=== PATIENT | male | born 1955 | race African-American/Black ===

== ENCOUNTER 2021-08-16 06:49 | Observation (INO) ==
[2021-08-16 08:43] LABS: Basophils % 0.7 % (0.0-0.8); Eosinophils # 0.1 10*3/uL (0.0-0.87); Hematocrit 45.2 VOL% (42.0-52.0); Hemoglobin 14.9 GM/DL (14.0-18.0); Immature Granulocytes % 0.2 %; Immature Granulocytes Absolute 0.01 #; Lymphocytes # 1.1 10*3/uL (1.4-4.0); Lymphocytes % 26.2 % (21.2-54.2); Mean Corpuscular Volume 97.6 FL (87-102); Mean Platelet Volume 9.3 FL (9.6-12.0); Monocytes % 8.8 % (1.7-12.7); Neutrophils % 62.1 % (38.7-73.9); Platelet Count 128 T/CUMM (130-400); Red Blood Count 4.63 MC/CUMM (3.8-5.5); White Blood Count 4.1 T/CUMM (4-12)
[2021-08-16 09:08] LABS: Bilirubin,Urine Negative (Negative); Blood, Urine Negative (Negative); Glucose,Urine (UA) Negative (Negative); Ketones,Urine Negative (Negative); Mucus,Urine Occasional /LPF (Occasional); Nitrite,Urine Negative (Negative); Protein,Urine 100 MG/DL; RBC,Urine 4 /HPF (0-4); Urine Appearance CLEAR (Clear); Urine Color Yellow (Yellow); Urine Specific Gravity 1.013 (1.001-1.035); Urine Urobilinogen < 2.0 EU/DL (0.2-1.0)
[2021-08-16 09:09] LABS: PT Patient Result 10.8 SECS (10.5-12.0); Partial Thromboplastin Time 27.5 SECS (23.8-32.1)
[2021-08-16 09:37] LABS: Alanine Aminotransferase 16 U/L (16-61); Albumin 3.3 G/DL (3.4-5.0); Alkaline Phosphatase 73 U/L (45-117); Aspartate Amino Transferase 13 U/L (0-37); Bilirubin,Total < 0.39 MG/DL (0.20-1.00); Blood Urea Nitrogen 20 MG/DL (7-18); Calcium 8.9 MG/DL (8.5-10.1); Carbon Dioxide 28 MMOL/L (21-32); Estimated Glom Filtration Rate 53 ML/MIN; Glucose 88 MG/DL (74-106); Osmolality,Calculated 276.7 MOS/KG (273-304); Potassium 5.4 MMOL/L (3.5-5.1); Sodium 138 MMOL/L (136-145); Total Protein 6.6 G/DL (6.4-8.2)
[2021-08-16] MEDS ORDERED: SODIUM CHLORIDE 0.9% 1,000 ML IV STA (09:46)
[2021-08-16] MEDS ORDERED: LEVOFLOXACIN INJ 750 MG in PREMIX 1 EACH IV STA (10:23)
[2021-08-16] MEDS ORDERED: hydrALAZINE 20 MG/1 ML VIAL IV PRN (11:18)
[2021-08-16] MEDS ORDERED: GLUCAGON 1 MG VIAL IM PRN (11:18)
[2021-08-16] MEDS ORDERED: MORPHINE 2 MG/1 ML SYRINGE IV PRN (11:18)
[2021-08-16] MEDS ORDERED: DEXTROSE 50% 25 GM/50 ML VIAL IV PRN (11:18)
[2021-08-16] MEDS ORDERED: ONDANSETRON 4 MG/2 ML VIAL IV PRN (11:18)
[2021-08-16] MEDS ORDERED: ALBUTEROL/IPRATROPIUM 3 ML NEB RESP TX PRN (11:18)
[2021-08-16] MEDS ORDERED: ACETAMINOPHEN 325 MG TABLET PO PRN (11:18)
[2021-08-16] MEDS ORDERED: LORazepam 2 MG/1 ML VIAL IV PRN (11:40)
[2021-08-16 12:04] LABS: Folate 16.3 NG/ML (5.38-24.0)
[2021-08-16] MEDS: ALBUTEROL 2.5 MG/3 ML NEB RESP TX SCH ×2 (12:15→19:10)
[2021-08-16] MEDS: LEVOFLOXACIN INJ 750 MG/150 ML PREMIX IV SCH (13:25)
[2021-08-16] MEDS: SODIUM CHLORIDE 0.9% 1,000 ML IV SCH ×2 (13:27→20:50)
[2021-08-16] MEDS: methylPREDNISolone SOD SUC 40 MG/1 ML VIAL IV SCH ×2 (13:28→23:05)
[2021-08-16] MEDS: guaiFENesin/DM ER 600-30 MG TABLET PO SCH (20:49)
[2021-08-17] MEDS: ALBUTEROL 2.5 MG/3 ML NEB RESP TX SCH ×4 (01:04→20:30)
[2021-08-17 06:31] LABS: Basophils % 0.2 % (0.0-0.8); Hemoglobin 15.3 GM/DL (14.0-18.0); Immature Granulocytes % 0.2 %; Immature Granulocytes Absolute 0.01 #; Lymphocytes # 0.4 10*3/uL (1.4-4.0); Lymphocytes % 6.7 % (21.2-54.2); Mean Corpuscular HGB Conc 33.3 GM/DL (32-36); Mean Corpuscular Volume 98.1 FL (87-102); Mean Platelet Volume 9.6 FL (9.6-12.0); Monocytes % 0.5 % (1.7-12.7); Neutrophils % 92.4 % (38.7-73.9); Platelet Count 133 T/CUMM (130-400); Red Blood Count 4.69 MC/CUMM (3.8-5.5); Red Cell Distribution Width 14.6 % (9.3-17.3); White Blood Count 6.2 T/CUMM (4-12)
[2021-08-17 07:02] LABS: Albumin 2.8 G/DL (3.4-5.0); Bilirubin,Total 0.6 MG/DL (0.20-1.00); Calcium 8.2 MG/DL (8.5-10.1); Osmolality,Calculated 276.8 MOS/KG (273-304); Potassium 5.2 MMOL/L (3.5-5.1); Risk Ratio 4.79; Thyroid Stimulating Hormone 4.98 uIU/ml (0.358-3.74); Total Protein 6.2 G/DL (6.4-8.2); VLDL Cholesterol 17.8 MG/DL
[2021-08-17 07:09] LABS: Lymphocytes 3 % (20-55); Segmented Neutrophils 97 % (50-85); Total Cells Counted 100
[2021-08-17 07:12] LABS: Ovalocytes Few; Platelet Estimate Adequate; Polychromasia Slight
[2021-08-17] MEDS: THIAMINE 100 MG TABLET PO SCH (08:50)
[2021-08-17] MEDS: PANTOPRAZOLE 40 MG TABLET PO SCH (08:50)
[2021-08-17] MEDS: FOLIC ACID 1 MG TABLET PO SCH (08:50)
[2021-08-17] MEDS: guaiFENesin/DM ER 600-30 MG TABLET PO SCH ×2 (08:50→22:39)
[2021-08-17] MEDS: LEVOFLOXACIN INJ 750 MG/150 ML PREMIX IV SCH (11:49)
[2021-08-17] MEDS: BENZONATATE 100 MG CAPSULE PO SCH ×3 (11:49→22:49)
[2021-08-17] MEDS: cefTRIAXone 1,000 MG in SODIUM CHLORIDE 0.9% 100 ML IV SCH (17:20)
[2021-08-17] MEDS: SODIUM CHLORIDE 0.9% 1,000 ML IV SCH (22:38)
[2021-08-17] MEDS: methylPREDNISolone SOD SUC 40 MG/1 ML VIAL IV SCH (22:39)
[2021-08-18] MEDS: ALBUTEROL 2.5 MG/3 ML NEB RESP TX SCH ×4 (00:42→20:15)
[2021-08-18 06:07] LABS: Basophils % 0.2 % (0.0-0.8); Hematocrit 43.2 VOL% (42.0-52.0); Hemoglobin 14.4 GM/DL (14.0-18.0); Immature Granulocytes % 0.3 %; Immature Granulocytes Absolute 0.02 #; Lymphocytes # 0.6 10*3/uL (1.4-4.0); Lymphocytes % 8.7 % (21.2-54.2); Mean Corpuscular HGB Conc 33.3 GM/DL (32-36); Mean Corpuscular Volume 98.2 FL (87-102); Mean Platelet Volume 9.4 FL (9.6-12.0); Monocytes % 0.8 % (1.7-12.7); Platelet Count 137 T/CUMM (130-400); Red Cell Distribution Width 14.6 % (9.3-17.3); White Blood Count 6.6 T/CUMM (4-12)
[2021-08-18 06:11] LABS: Basophils % 0.2 % (0.0-0.8); Hemoglobin 14.6 GM/DL (14.0-18.0); Lymphocytes # 0.6 10*3/uL (1.4-4.0); Mean Corpuscular Volume 97.7 FL (87-102); Mean Platelet Volume 9.3 FL (9.6-12.0); Monocytes % 0.8 % (1.7-12.7); Neutrophils % 89.5 % (38.7-73.9); Platelet Count 142 T/CUMM (130-400); Red Cell Distribution Width 14.6 % (9.3-17.3); White Blood Count 6.6 T/CUMM (4-12)
[2021-08-18 06:47] LABS: Albumin 2.7 G/DL (3.4-5.0); Bilirubin,Total 1.4 MG/DL (0.20-1.00); Osmolality,Calculated 280.5 MOS/KG (273-304); Potassium 5.3 MMOL/L (3.5-5.1); Total Protein 5.9 G/DL (6.4-8.2)
[2021-08-18] MEDS: methylPREDNISolone SOD SUC 40 MG/1 ML VIAL IV SCH ×2 (09:06→21:01)
[2021-08-18] MEDS: FOLIC ACID 1 MG TABLET PO SCH (09:07)
[2021-08-18] MEDS: guaiFENesin/DM ER 600-30 MG TABLET PO SCH ×2 (09:07→21:00)
[2021-08-18] MEDS: BENZONATATE 100 MG CAPSULE PO SCH ×3 (09:07→21:03)
[2021-08-18] MEDS: PANTOPRAZOLE 40 MG TABLET PO SCH (09:07)
[2021-08-18] MEDS: THIAMINE 100 MG TABLET PO SCH (09:07)
[2021-08-18] MEDS: LEVOFLOXACIN INJ 750 MG/150 ML PREMIX IV SCH (09:07)
[2021-08-18] MEDS: NICOTINE 21 MG/24 HR PATCH TRANSDERM PRN (11:37)
[2021-08-18] MEDS: SODIUM CHLORIDE 0.9% 1,000 ML IV SCH ×2 (17:28)
[2021-08-18] MEDS: cefTRIAXone 1,000 MG in SODIUM CHLORIDE 0.9% 100 ML IV SCH (17:28)
[2021-08-19] MEDS: ALBUTEROL 2.5 MG/3 ML NEB RESP TX SCH ×4 (01:05→19:12)
[2021-08-19] MEDS: SODIUM CHLORIDE 0.9% 1,000 ML IV SCH ×3 (03:33→22:40)
[2021-08-19 06:41] LABS: Basophils % 0.1 % (0.0-0.8); Hematocrit 39.9 VOL% (42.0-52.0); Hemoglobin 13.1 GM/DL (14.0-18.0); Immature Granulocytes % 0.4 %; Immature Granulocytes Absolute 0.03 #; Lymphocytes # 1.9 10*3/uL (1.4-4.0); Mean Corpuscular HGB Conc 32.8 GM/DL (32-36); Mean Corpuscular Volume 98.5 FL (87-102); Mean Platelet Volume 8.9 FL (9.6-12.0); Monocytes % 6.7 % (1.7-12.7); Neutrophils % 68.8 % (38.7-73.9); Platelet Count 141 T/CUMM (130-400); Red Blood Count 4.05 MC/CUMM (3.8-5.5); Red Cell Distribution Width 14.6 % (9.3-17.3); White Blood Count 7.8 T/CUMM (4-12)
[2021-08-19 07:23] LABS: Alanine Aminotransferase 12 U/L (16-61); Albumin 2.5 G/DL (3.4-5.0); Alkaline Phosphatase 53 U/L (45-117); Aspartate Amino Transferase 11 U/L (0-37); Bilirubin,Total < 0.39 MG/DL (0.20-1.00); Blood Urea Nitrogen 17 MG/DL (7-18); Calcium 7.8 MG/DL (8.5-10.1); Carbon Dioxide 24 MMOL/L (21-32); Estimated Glom Filtration Rate 71 ML/MIN; Glucose 96 MG/DL (74-106); Potassium 4.2 MMOL/L (3.5-5.1); Sodium 143 MMOL/L (136-145); Total Protein 5.5 G/DL (6.4-8.2)
[2021-08-19] MEDS: THIAMINE 100 MG TABLET PO SCH (08:50)
[2021-08-19] MEDS: guaiFENesin/DM ER 600-30 MG TABLET PO SCH ×2 (08:50→22:40)
[2021-08-19] MEDS: methylPREDNISolone SOD SUC 40 MG/1 ML VIAL IV SCH ×2 (08:51→22:41)
[2021-08-19] MEDS: PANTOPRAZOLE 40 MG TABLET PO SCH (08:51)
[2021-08-19] MEDS: BENZONATATE 100 MG CAPSULE PO SCH ×3 (08:51→22:40)
[2021-08-19] MEDS: LEVOFLOXACIN INJ 750 MG/150 ML PREMIX IV SCH (08:52)
[2021-08-19] MEDS: FOLIC ACID 1 MG TABLET PO SCH (08:52)
[2021-08-19] MEDS: NICOTINE 21 MG/24 HR PATCH TRANSDERM PRN (14:10)
[2021-08-19] MEDS: cefTRIAXone 1,000 MG in SODIUM CHLORIDE 0.9% 100 ML IV SCH (17:17)
[2021-08-20] MEDS: ALBUTEROL 2.5 MG/3 ML NEB RESP TX SCH ×4 (00:55→19:15)
[2021-08-20 06:02] LABS: Basophils % 0.3 % (0.0-0.8); Hematocrit 40.7 VOL% (42.0-52.0); Hemoglobin 13.4 GM/DL (14.0-18.0); Immature Granulocytes % 0.4 %; Immature Granulocytes Absolute 0.03 #; Lymphocytes # 1.8 10*3/uL (1.4-4.0); Mean Corpuscular HGB Conc 32.9 GM/DL (32-36); Mean Corpuscular Volume 98.5 FL (87-102); Mean Platelet Volume 9.5 FL (9.6-12.0); Monocytes % 6.7 % (1.7-12.7); Neutrophils % 70.6 % (38.7-73.9); Platelet Count 147 T/CUMM (130-400); Red Blood Count 4.13 MC/CUMM (3.8-5.5); Red Cell Distribution Width 14.6 % (9.3-17.3)
[2021-08-20 06:28] LABS: Calcium 7.7 MG/DL (8.5-10.1); Osmolality,Calculated 285.8 MOS/KG (273-304); Potassium 4.1 MMOL/L (3.5-5.1)
[2021-08-20] MEDS: SODIUM CHLORIDE 0.9% 1,000 ML IV SCH ×2 (09:40→21:07)
[2021-08-20] MEDS: LEVOFLOXACIN INJ 750 MG/150 ML PREMIX IV SCH (09:55)
[2021-08-20] MEDS: guaiFENesin/DM ER 600-30 MG TABLET PO SCH ×2 (09:55→21:07)
[2021-08-20] MEDS: THIAMINE 100 MG TABLET PO SCH (09:55)
[2021-08-20] MEDS: BENZONATATE 100 MG CAPSULE PO SCH ×3 (09:55→21:08)
[2021-08-20] MEDS: FOLIC ACID 1 MG TABLET PO SCH (09:55)
[2021-08-20] MEDS: PANTOPRAZOLE 40 MG TABLET PO SCH (09:55)
[2021-08-20] MEDS: methylPREDNISolone SOD SUC 40 MG/1 ML VIAL IV SCH (09:56)
[2021-08-20] MEDS: cefTRIAXone 1,000 MG in SODIUM CHLORIDE 0.9% 100 ML IV SCH (17:00)
[2021-08-21] MEDS: ALBUTEROL 2.5 MG/3 ML NEB RESP TX SCH ×2 (00:05→06:50)
[2021-08-21 06:51] LABS: Basophils % 0.3 % (0.0-0.8); Eosinophils % 0.1 % (0.00-10.9); Hematocrit 42.9 VOL% (42.0-52.0); Hemoglobin 14.1 GM/DL (14.0-18.0); Immature Granulocytes % 0.5 %; Immature Granulocytes Absolute 0.04 #; Lymphocytes # 1.9 10*3/uL (1.4-4.0); Lymphocytes % 24.5 % (21.2-54.2); Mean Corpuscular HGB Conc 32.9 GM/DL (32-36); Mean Corpuscular Volume 97.7 FL (87-102); Mean Platelet Volume 9.2 FL (9.6-12.0); Monocytes % 5.7 % (1.7-12.7); Neutrophils % 68.9 % (38.7-73.9); Platelet Count 167 T/CUMM (130-400); Red Blood Count 4.39 MC/CUMM (3.8-5.5); Red Cell Distribution Width 14.6 % (9.3-17.3); White Blood Count 7.9 T/CUMM (4-12)
[2021-08-21] MEDS ORDERED: GLYCOPYRROLATE 0.4 MG/2 ML VIAL IM ONE (07:00)
[2021-08-21] MEDS ORDERED: PROMETHAZINE 25 MG/1 ML VIAL IM ONE (07:00)
[2021-08-21] MEDS ORDERED: MEPERIDINE 50 MG/1 ML VIAL IM ONE (07:00)
[2021-08-21 07:14] LABS: Calcium 8.1 MG/DL (8.5-10.1); Osmolality,Calculated 280.3 MOS/KG (273-304); Potassium 4.1 MMOL/L (3.5-5.1)
[2021-08-21 07:26] LABS: Free T4 (Free Thyroxine) 0.48 NG/DL (0.76-1.46); Thyroid Stimulating Hormone 33.8 uIU/ml (0.358-3.74)
[2021-08-21] MEDS ORDERED: LIDOCAINE 2% 20 ML VIAL RESP TX ONE (07:30)
[2021-08-21] MEDS ORDERED: LIDOCAINE 2% VISCOUS 100 ML BOTTLE SWISH/SPIT ONE (07:30)
[2021-08-21] MEDS ORDERED: LIDOCAINE 1% 20 ML VIAL MISC INJ ONE (07:30)
[2021-08-21] MEDS ORDERED: MIDAZOLAM 2 MG/2 ML VIAL IV ONE (07:30)
[2021-08-21 08:03] VITALS: BP 145/86
[2021-08-21] MEDS ORDERED: methylPREDNISolone SOD SUC 40 MG/1 ML VIAL IV SCH (09:00)
[2021-08-21] MEDS: PANTOPRAZOLE 40 MG TABLET PO SCH (10:02)
[2021-08-21] MEDS: BENZONATATE 100 MG CAPSULE PO SCH (10:02)
[2021-08-21] MEDS: THIAMINE 100 MG TABLET PO SCH (10:02)
[2021-08-21] MEDS: guaiFENesin/DM ER 600-30 MG TABLET PO SCH (10:02)
[2021-08-21] MEDS: FOLIC ACID 1 MG TABLET PO SCH (10:02)
[2021-08-21] MEDS: LEVOFLOXACIN INJ 750 MG/150 ML PREMIX IV SCH (11:23)
[2021-08-21] MEDS: SODIUM CHLORIDE 0.9% 1,000 ML IV SCH (12:36)
[2021-08-22] MEDS ORDERED: LEVOTHYROXINE 175 MCG TABLET PO SCH (06:30)
[2021-08-23 12:12] LABS: QuantiFERON-Tb Gold Pl Negative (Negative); TB2 Ag Minus Result 0 IU/mL
[2021-08-24 11:21] LABS: M. Tuberculosis PCR Result Negative (Negative); M. Tuberculosis PCR Source BRONCH WASH
== END 2021-08-21 13:38 | disposition home or self-care (01) ==
LOC: N.ED 06:49 → SUATTDRO 11:18 → N.EDINP 11:18 → INTOOBSV 11:18 → N.5E 18:24
PROVIDERS: ADMIT Internal Medicine; ATTEND Internal Medicine
PROC: BRONCHB (2021-08-21 07:35)